=== PATIENT | female | born 1965 | race African-American/Black ===

== ENCOUNTER 2016-12-14 03:36 | Emergency (ER) | payer MEDICARE, OTHER ==
[~2016-12-14] VITALS: Ht 170.2 cm; Wt 111.1 kg
[~2016-12-14 03:36] MED LIST: GEODON20 MG ORAL; HYDROCHLOROTH12.5 M2 ORAL; LATANOPROST2.5 ML BOTH EYES; LISINOPRIL2.5 MG ORAL; TIMOLOL MALEATE10 M1 OP; ZANTAC150 MG ORAL
[2016-12-14] MEDS ORDERED: ACETAMINOPHEN500 M3 ORAL (04:03)
[2016-12-14] MEDS ORDERED: ROBAXIN-750750 MG PO (04:03)
[2016-12-14] MEDS ORDERED: CYCLOBENZAPRINE10 MG ORAL (04:03)
[2016-12-14 04:09] VITALS: BP 155/98
[2016-12-14 04:09] LABS: APPEARANCE,URINE CLEAR; KETONES,URINE NEGATIVE (NEGATIVE); LEUKOCYTE ESTERASE ,URINE NEGATIVE (NEGATIVE); NITRITE,URINE NEGATIVE (NEGATIVE); PH,URINE 6 (4.5-8.0); PROTEIN,URINE NEGATIVE (NEGATIVE); UROBILINOGEN,URINE NORMAL MG/DL (0.0-1.0)
[2016-12-14] MEDS ORDERED: Methocarbamol 750mg tab ORAL ONE (04:15)
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
== END 2016-12-14 04:15 | disposition home or self-care (01) ==
LOC: EDBD 03:36 → EMR 04:00
DX: M54.9 Dorsalgia, unspecified (principal); I10 Essential (primary) hypertension; F31.9 Bipolar disorder, unspecified; F20.9 Schizophrenia, unspecified; F12.90 Cannabis use, unspecified, uncomplicated
CPT/HCPCS: 80300; 81003; 99284

== ENCOUNTER 2017-03-08 10:24 | Emergency (ER) | payer MEDICARE, OTHER ==
[~2017-03-08] VITALS: Ht 170.2 cm; Wt 113.4 kg
[~2017-03-08 10:24] MED LIST changes: +ACETAMINOPHEN500 M3 ORAL; +CYCLOBENZAPRINE10 MG ORAL; +ROBAXIN-750750 MG PO
--- NOTE | 2017-03-08 10:43 | Emergency Room Report ---
History of Present Illness General Chief Complaint: Female Urogenital Problems Source: Patient Present Illness HPI 51-year-old female history of hypertension, presenting with vaginal discharge for 2 days. Patient states that she has vaginal discharge, [id number], associated with intermittent itchiness. Denies any abnormal vaginal bleeding. Denies any fever chills nausea vomiting abdominal pain or flank pain. Patient states that she is sexually active with multiple partners, sometimes uses protection, has not been tested for STDs in the last one year. Patient states that she does have a history of STDs in the past. Allergies: Coded Allergies: No Known Allergies (Unverified , 12/14/16) Patient History Past Medical History: see triage record Past Surgical History: none Pertinent Family History: none Last Menstrual Period: 02/01/17 Now: No Reviewed Nursing Documentation: PMH: Agreed, PSxH: Agreed Nursing Documentation-PMH Hx Hypertension: Yes Hx Diabetes: Yes - Borderline Hx Gastrointestinal Problems: Yes Physical Exam Vital Signs Date Time Temp Pulse Resp B/P (MAP) Pulse Ox O2 Delivery O2 Flow Rate FiO2 03/08/17 10:27 98.1 79 17 149/95 98 Room Air Sp02 EP Interpretation: reviewed, normal General Appearance: normal inspection, well appearing, no apparent distress, alert, GCS 15, non-toxic Head: normocephalic, atraumatic Eyes: bilateral eye normal inspection, bilateral eye PERRL, bilateral eye EOMI ENT: normal ENT inspection, normal pharynx, normal voice, moist mucus membranes Neck: normal inspection, full range of motion, supple Respiratory: normal inspection, lungs clear, normal breath sounds, no respiratory distress, no retraction, no wheezing, speaking full sentences, chest symmetrical Cardiovascular #1: normal inspection, regular rate, rhythm, no edema, normal capillary refill Cardiovascular #2: 2+ radial (R), 2+ radial (L) Gastrointestinal: normal inspection, non tender, soft, non-distended, no guarding Genitourinary: other - [place]-white vaginal discharge Musculoskeletal: normal inspection, back normal, normal range of motion, non- tender Neurologic: normal inspection, alert, oriented x3, responsive, motor strength/ tone normal, sensory intact, normal gait, speech normal Psychiatric: normal inspection, judgement/insight normal, memory normal Skin: normal inspection, normal color, no rash, warm/dry, well hydrated, normal turgor Medical Decision Making ER Course 51 yo F with vaginal discharge DDX: UTI / cystitis vs. STD vs yeast infection Plan: UA - +yeast - tx with fluconazole Empirically treat with antibiotics for STD Disposition: Patient is to be discharged to home. Patient is instructed to follow up with their primary care doctor within 5 days. Patient is instructed to follow up with [facility] within 3 days. Strict return precautions discussed with patient such as fever, chills, worsening/severe pain, nausea, vomiting, which may indicate severe illness. Patient verbalizes understanding and agrees with plan. Please note that this Emergency Department Report was dictated using PushToTestheading saw operator technology software, occasionally this can lead to erroneous entry secondary to interpretation by the dictation equipment Laboratory Tests Test 03/08/17 10:45 Urine Color Yellow Urine Appearance Slightly cloudy Urine pH 5 (4.5-8.0) Urine Specific [place] 1.025 (1.005-1.035) Urine Protein 1+ (NEGATIVE) H Urine Glucose (UA) Negative (NEGATIVE) Urine Ketones Negative (NEGATIVE) Urine Occult Blood 1+ (NEGATIVE) H Urine Nitrite Negative (NEGATIVE) Urine Bilirubin Negative (NEGATIVE) Urine Urobilinogen 1 MG/DL (0.0-1.0) H Urine Leukocyte Esterase 3+ (NEGATIVE) H Urine RBC 2-4 /HPF (0 - 2) H Urine WBC 10-15 /HPF (0 - 2) H Urine Squamous Epithelial Cells Moderate /LPF (NONE/OCC) H Urine Bacteria Few /HPF (NONE) Urine Yeast Occasional /HPF (NONE) H Chlamydia trachomatis RNA Pending Neisseria gonorrhoeae RNA Pending Last Vital Signs Date Time Temp Pulse Resp B/P (MAP) Pulse Ox O2 Delivery O2 Flow Rate FiO2 03/08/17 10:27 98.1 79 17 149/95 98 Room Air Disposition: HOME, SELF-CARE Condition: Stable Humza Dejesus M.D. Mar 08, 2017 10:43
[2017-03-08] MEDS ORDERED: Azithromycin 250mg tab ORAL ONE (10:45)
[2017-03-08 10:56] LABS: APPEARANCE,URINE SLIGHTLY CLOUDY; KETONES,URINE NEGATIVE (NEGATIVE); LEUKOCYTE ESTERASE ,URINE 3+ (NEGATIVE); NITRITE,URINE NEGATIVE (NEGATIVE); PH,URINE 5 (4.5-8.0); PROTEIN,URINE 1+ (NEGATIVE); UROBILINOGEN,URINE 1 MG/DL (0.0-1.0)
[2017-03-08] MEDS ORDERED: Lidocaine 1% MPF 10mg/ml 5ml IM ONE (11:00)
[2017-03-08 11:04] LABS: BACTERIA,URINE FEW /HPF; SQUAMOUS EPITHELIAL CELL,UR MODERATE /LPF (NONE/OCC); YEAST,URINE OCCASIONAL /HPF
[2017-03-08 11:13] VITALS: BP 154/86
[2017-03-08] MEDS ORDERED: Fluconazole 100mg tab ORAL ONE (11:15)
[2017-03-08 11:24] VITALS: BP 154/86
== END 2017-03-08 11:27 | disposition home or self-care (01) ==
LOC: EMR 10:50
DX: N89.8 Other specified noninflammatory disorders of vagina (principal); I10 Essential (primary) hypertension
CPT/HCPCS: 81003; 87086; 87181; 87491; 87590; 96372; 99284; J0696